=== PATIENT | female | born 1965 | race Caucasian/White ===

== ENCOUNTER 2017-11-18 10:03 | Outpatient (CLI) | payer BC ==
--- NOTE | 2017-11-18 11:07 | RAD ---
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 Comparison: None. FINDINGS: There is a small chip fracture off the lateral process of the talus. No other fracture or malalignmen t is appreciated. Small joint effusion. IMPRESSION: Small chip fracture lateral process of the talus. POS: [facility]
== END 2017-11-18 10:04 | disposition home or self-care (01) ==
LOC: SCSRAD 10:03
PROVIDERS: ATTEND Family Medicine
DX: G57.52 Tarsal tunnel syndrome, left lower limb (principal); S92.142A Displaced dome fracture of left talus, initial encounter for closed fracture

== ENCOUNTER 2018-12-31 12:22 | Outpatient (CLI) | payer BC ==
--- NOTE | 2018-12-31 13:44 | MRI ---
MRI LEFT SHOULDER WITHOUT CONTRAST: HISTORY: M25.512, acute pain of left shoulder. COMPARISON: None. FINDINGS: Biceps tendon: Mild extraarticular biceps tenosynovitis. Mild intraarticular tendinosis, as well as interstitial split tear. Labrum: The posterior-superior labrum is torn from 9 o'clock to 10 o'clock. Rotator cuff: Mild diverticulosis of the supraspinatus and infraspinatus tendons. No full-thickness perforation. Mild bursal surface fraying, supraspinatus tendon. 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 This narrows the subacromial space. No fracture. No malalignment. Normal glenoid version. Muscles: Muscle signal and bulk are normal. IMPRESSION: 1. Mild extraarticular biceps tenosynovitis as well as interstitial split tear of the intraarticular tendon. 2. Subacromial keel osteophyte, causing mild narrowing of the subacromial space, at the coracoacromi al ligament, with bursal surface fraying of the supraspinatus tendon and mild subacromial/subdeltoid bursal effusion. 3. No full-thickness perforation of the rotator cuff. 4. Posterior-superior labral tearing at 9 o'clock to 10 o'clock. 5. Normal muscle signal and bulk. POS: [facility]
== END 2018-12-31 12:23 | disposition home or self-care (01) ==
LOC: SCSMRI 12:22
PROVIDERS: ATTEND Orthopaedic Surgery
DX: M25.512 Pain in left shoulder (principal); S43.402A Unspecified sprain of left shoulder joint, initial encounter; M24.112 Other articular cartilage disorders, left shoulder; M75.22 Bicipital tendinitis, left shoulder; M25.712 Osteophyte, left shoulder